=== PATIENT | female | born 1950 | race African-American/Black ===

== ENCOUNTER 2019-08-25 15:48 | Observation (INO) | payer MEDICARE, SELFPAY ==
[2019-08-25] VITALS (10 sets, daily range): BP systolic 109–128; BP diastolic 52–76; PULSE 54–77; RESP 16–18; TEMP 36.1–36.4; O2SAT 99–100; BMI 28.8
--- NOTE | ~2019-08-25 | XR_ITS ---
EXAMINATION: XR chest 1V portable DATE: 08/25/2019 16:22 INDICATION: Syncope with unwitnessed fall. Neurologic symptoms. Nausea and vomiting. TECHNIQUE: frontal view of the chest was obtained. COMPARISON: Chest radiograph dated 01/21/2004 FINDINGS: Region of consolidation with air bronchograms in the left lower lobe. Remainder of the lungs are carmen r. No pulmonary edema, pleural effusion or pneumothorax. The cardiomediastinal silhouette is normal. Mild degenerative skeletal changes in the thoracic spine and bilateral shoulders. IMPRESSION: 1. Consolidation in the left lower lobe concerning for aspiration or pneumonia with differential incl uding atelectasis. Recommend radiographic follow-up to resolution. Reviewed, dictated and finalized at location A. AIN HEMMER AUTOMATIC IMPRESSION: 1. Consolidation in the left lower lobe concerning for aspiration or pneumonia with differential including atelectasis. Recommend radiographic follow-up to re solution.
--- NOTE | ~2019-08-25 | CT_ITS ---
EXAMINATION: CT cervical spine wo con DATE: 08/25/2019 15:59 INDICATION: Unwitnessed fall and found on ground with possible head injury, with subsequent intermit tent loss of consciousness, nausea and vomiting. TECHNIQUE: Computed tomography (CT) of the cervical spine was performed without intravenous contrast. Automated exposure control and iterative reconstruction technique were employed. The dose-length pro duct was 342.11 mGy-cm. COMPARISON: None FINDINGS: 1 mm anterolisthesis C3-4 on C5 and 1 mm retrolisthesis C5 on C6. Vertebral body heights are normal. No fracture. Lucent hemangiomas with thickened trabecula extending through the attenuation marrow fat . Moderate disc height loss at C2-C3 and C5-C6 and mild disc height loss at C4-C5, C6-C7 and T1-T2. D isc bulges throughout the cervical spine resulting in mild disc height loss at multiple levels most p rominent at C5-C6 and C6-C7. Multilevel mild to moderate right-sided and moderate to severe left-side d facet osteoarthritis. Severe bilateral uncovertebral osteoarthritis at the 5 C6. Mild to moderate u ncovertebral osteoarthritis throughout the remainder of the cervical spine. Together this results in mild to moderate neural foraminal stenosis bilaterally at C5-C6 and on the right at T1-T2. Mild neura l foraminal stenosis throughout the remainder of the cervical and upper thoracic spine. Atherosclerot ic calcification is at the bilateral carotid bulbs. Cervical soft tissues are otherwise unremarkable. Visualized portions of the sphenoid sinuses, mastoid air cells, middle ear cavities, airway and apic es of the lungs are clear. IMPRESSION: 1. Moderate cervical spondylosis. No acute osseous abnormality. Reviewed, dictated and finalized at location A. ER DEVELOPMENT SPECIALIST
--- NOTE | ~2019-08-25 | CT_ITS ---
EXAMINATION: CT brain wo con DATE: 08/25/2019 15:59 INDICATION: Unwitnessed fall with TECHNIQUE: Computed tomography (CT) of the head was performed without intravenous contrast. Sagittal and coronal reconstructions were performed. The mA was adjusted according to patient size. Iterative reconstruction technique was employed. The dose-length product was 605.33 mGy-cm. COMPARISON: head CT dated 09/12/15 FINDINGS: No fracture. Small region of encephalomalacia in the right frontal lobe consistent with chronic infar ct. No acute intracranial hemorrhage, acute infarction or abnormal extra axial fluid collection. Symm etric prominence of the sulci consistent with mild age-appropriate diffuse cerebral volume loss. Vent ricles are normal and symmetric. No mass/mass effect. Mild mucoperiosteal thickening in the bilateral ethmoid and maxillary sinuses. The orbits and mastoid air cells are normal. Intracranial calcified c erebral atherosclerosis is noted. IMPRESSION: 1. No fracture or acute intracranial process. 2. Small old right frontal infarct. Reviewed, dictated and finalized at location A. SPRING CUTTER
--- NOTE | 2019-08-25 15:37 | ECG_ITS ---
Measurements Intervals [place] Rate: 54 P: 60 TN: 153 QRS: 0 QRSD: 89 T: 31 QT: 459 QTc: 438 Interpretive Statements SINUS BRADYCARDIA BORDERLINE T WAVE ABNORMALITY- INFERIOR LEADS BASELINE ARTIFACT- I, II BORDERLINE ECG Electronically Signed On 08-26-2019 11:24:20 HEADING MATCHER AND ASSEMBLER by Nahum Cobb D.O.
--- NOTE | 2019-08-25 15:59 | ED.NEUROSD ---
HPI - Neuro Symptoms/Deficit General Chief Complaint: Suspected CVA Stated Complaint: code cva Time Seen by Provider: 08/25/19 15:49 Source: family and EMS Mode of arrival: EMS Limitations: other (Pt is nonverbal) History of Present Illness HPI Narrative: The pt is a 69 y/o female who presents to the ED, via EMS, c/o neurological deficits secondary to a fall onset today. Per EMS, pt went upstairs to use the restroom when the pt's family heard a thump. They went upstairs to find the pt had fallen, striking her head on the wall hard enough to leave a hole. EMS then arrived and the pt was A&O x4 at that time. Pt then began to become verbally unresponsive and was listing to the right side, as well as noting that the pt did experience some vomiting. EMS states that the pt momentarily became A&O x4 again before she became unresponsive. Per pt's family, pt has also not been eating or drinking much. Pt now lives at home with her family. HPI is limited due to the pt being nonverbal. Location: other (Unresponsive, was listing to the right side) Context: found down (Had fallen) Associated symptoms: other (Unobtainable) Related Data Home Medications Medication Instructions Recorded Confirmed atorvastatin 20 mg tablet 20 mg PO DAILY 05/23/19 carvedilol 25 mg tablet 25 mg PO Q12H 05/23/19 donepezil 5 mg tablet 5 mg PO DAILY 05/23/19 esomeprazole magnesium 20 mg 20 mg PO DAILY 05/23/19 capsule,delayed release fluoxetine 20 mg capsule 20 mg PO DAILY 05/23/19 Allergies Allergy/AdvReac Type Severity Reaction Status Date / Time No Known Allergies Allergy Verified 04/25/15 05:49 Review of Systems Review of Systems: ROS unobtainable: other (Unobtainable due to the pt being nonverbal. ) [facility] Past Medical History Medical History (Updated 08/25/19 @ 18:33 by Dunia Dodd MD) Alzheimer's type dementia with late onset without behavioral disturbance Chronic depression Essential (primary) hypertension Gastro-esophageal reflux disease without esophagitis terminal press operator (current) use of insulin Mixed hyperlipidemia Renal insufficiency Type 2 diabetes mellitus without complication, with long-term current use of insulin Unspecified deficiency anemia Surgical History Surgical History (Updated 08/25/19 @ 16:03 by Yonas Hi) Surgical history unknown Social History Social History (Updated 08/25/19 @ 16:08 by Yonas Hi) Smoking status: Former smoker Alcohol intake: never Substance use: never Gender identity (if verbalized by the patient): Female Spiritual care concerns: No Agree to blood products: Yes Comments PCP: Dr. Camargo PMSFx is limited due to the pt being nonverbal. History obtained via old records. Exam Const: General: no acute distress Nutritional Appearance: obese Limitations: behavioral limitations (Pt currently nonverbal) Resp: Effort & Inspection: normal respiratory effort Auscultation: clear to auscultation bilaterally Cardio: Rate: regular rate Rhythm: regular rhythm GI: GI Palp: Yes Soft to palpation and No Tenderness to palpation present (GI) Auscultation: normal bowel sounds Back/Spine/Pelvis: Cervical Spine: collar present Skin: General skin exam: normal color Neuro: General: other (Patient is able to follow commands normally.) Speech: aphasia Motor exam (neuro): Other motor observations present (Pt can move bilateral feet and squeeze hands. ) Extrem: General: normal to inspection, full ROM and no clubbing, cyanosis or edema Course Course Emergency Course: Patient presents with altered mental status after fall and head injury. Unclear if patient eventually had subclinical seizure activity causing her to be postictal or if she simply has a concussion for which she is currently nonverbal. Patient does appear to have a history of dementia noted in her medical records from primary care physician office. Patient without acute findings noted on CT scan. Chest x-r
[2019-08-25 16:01] LABS: Glucose Point of Care 125 (65-105)
[2019-08-25 16:19] LABS: Basophils Percent Auto 0.7 % (0.2-1.2); Eosinophils Percent Auto 1.1 % (0-4.4); Hematocrit 34.8 % (37.0-47.0); Hemoglobin 10.9 g/dL (12.0-15.0); Lymphocytes Absolute Auto 1.03 K/mm3 (0.9-3.2); Lymphocytes Percent Auto 36.8 % (18.3-44.2); Mean Corpuscular HGB Conc 31.3 g/dl (32-36); Mean Corpuscular Volume 86.4 fl (80-100); Mean Platelet Volume 10.9 fl (7.4-10.4); Monocytes Absolute Auto 0.2 K/mm3 (0.1-0.6); Monocytes Percent Auto 7.9 % (2.6-8.5); Neutrophils Absolute Auto 1.5 K/mm3 (1.3-6.7); Neutrophils Percent Auto 53.5 % (45.5-73.1); Platelet Count Result 208 k/mm3 (150-375); Red Blood Count 4.03 M/mm3 (4.2-5.4); Red Cell Distribution Width 14.8 % (11.5-14.5); White Blood Count 2.8 K/mm3 (4.5-10.0)
[2019-08-25 16:29] LABS: Blood Urea Nitrogen 19 mg/dL (7-17); Calcium 9.1 mg/dL (8.4-10.2); Carbon Dioxide 19 mmol/L (22-30); Chloride 103 mmol/L (98-107); Estimated Glomerular Filt Rate 41; Glucose 131 mg/dL (65-105); Potassium 4.8 mmol/L (3.4-5.0); Sodium 137 mmol/L (137-145)
[2019-08-25 16:35] LABS: INR 1.3; Prothrombin Time 15.4 Seconds (11.1-14.7)
[2019-08-25 16:41] LABS: Troponin I < 0.012 ng/mL (0.000-0.034)
[2019-08-25 16:52] LABS: Add Urine Microscopic? YES; Appearance Urine Cloudy (Clear); Bacteria Urine Trace /hpf; Bilirubin Urine 1+ (Negative); Blood Urine 1+ (Negative); Color Urine Amber (Yellow); Glucose Urine UA Negative (Negative); Hyaline Casts Urine 30-49 /lpf; Ketones Urine 2+ mg/dL (Negative); Leukocyte Esterase Ur Trace LEU/UL (Negative); Mucus Urine Heavy /lpf; Nitrate Urine Negative (Negative); Protein Urine 2+ mg/dL (Negative); Squamous Epithelial Cell Urine Many /hpf (Few)
[2019-08-25 17:32] LABS: Lactic Acid Reflex 1.1 mmol/L (0.7-2.1)
--- NOTE | 2019-08-25 18:14 | ADMGEN ---
This patient, Barby Little, was admitted to Medical Room 246-. Patient/family oriented to hospital policies and general routines including ID bracelet, bed and alarms, visiting hours, pain management, procedures, bathroom and other care routines, personal items, smoking policy, room service/diet, and visiting hours. Valuables list has been completed. Information on how to activate the Rapid Response Team has been discussed. Patient/Family are encouraged to report perceived risks to care and to ask questions if they do not understand what they are told or what they should do.
[2019-08-25] MEDS: LACTATED RINGERS 1,000 ML 150 ML IV CONT (18:36)
--- NOTE | 2019-08-25 21:30 | PM.IMHP ---
H&P: HPI History of Present Illness Chief complaint: Fall. Narrative: Barby Little is a 69 year old female with dementia, hypertension, diabetes, anemia, and chronic kidney disease who presented to the emergency department earlier this afternoon via EMS from home for evaluation of intermittent confusion after a fall. Unfortunately, she does not have any memory about what transpired this morning, and as such a majority of this medical history is obtained via a review of her electronic medical records. Not long prior to arrival to the emergency department, the patient went upstairs to use the restroom when her family members heard a thump. Upon entering the bathroom, they note that the patient had fallen and struck her head on the wall. The fall was hard enough that it actually left a hole in the drywall. On EMS arrival she was alert and oriented x4, however in route to the hospital she became verbally unresponsive and seemed to be listing to the right. Shortly thereafter she complained of nausea and had an episode of emesis. At the time my evaluation she is awake and alert and has no complaints, except for being frustrated by not being able to remember what happened today. It is unclear if the patient had a syncopal episode or if she simply had a fall. She does mention on occasion she will get lightheaded with position changes and shortly after standing up to walk. She does not believe she has ever had a syncopal episode and she also denies ever having a seizure. Of note, chest x-ray shows a consolidation in the left lower lobe concerning for aspiration or pneumonia. Patient denies dysphagia and concerns for aspiration. Currently she denies headache, neck ache, auditory and visual changes, focal weakness, paresthesias, fever, chills, sweats, cold and flu symptoms, chest pain, pleuritic pain, shortness of breath, nausea, vomiting, diarrhea, and dysuria. Review of Systems Review of Systems: All systems reviewed & are unremarkable except as noted in HPI and below PMFSH Past Medical History Medical History (Updated 08/25/19 @ 23:06 by Kelli Singh PA-C) Alzheimer's type dementia with late onset without behavioral disturbance Chronic anemia Chronic kidney disease Congestive heart failure Depression with anxiety GERD (gastroesophageal reflux disease) Hiatal hernia Noted on EGD in [place] [address] Garcias. Esophageal polyp was also noted at that time. Hyperlipidemia Hypertension Mixed hyperlipidemia Obstructive sleep apnea Renal insufficiency Type 2 diabetes mellitus Surgical History Surgical History (Updated 08/25/19 @ 19:28 by Kelli Singh PA-C) Status post uvulopalatopharyngoplasty Family History Family History Mother Family history of diabetes mellitus in first degree relative Sibling Family history of diabetes mellitus in first degree relative Other Diabetes mellitus Family history of allergic disorder Hypertension Social History Social History (Updated 08/25/19 @ 22:46 by Kelli Singh PA-C) Social History: The patient has her own home in [place], but has been living with her son ?due to a recent illness.? She is and has 2 children. 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 Her son, Davi Tristan, is listed as her emergency contact. She is a former smoker. No alcohol or drug abuse. Spiritual care concerns: No Agree to blood products: Yes Meds Home Medications and Allergies Home Medications Medication Instructions Recorded Confirmed Type atorvastatin 20 mg tablet 20 mg PO DAILY 05/23/19 08/25/19 History carvedilol 25 mg tablet 25 mg PO Q12H 05/23/19 08/25/19 History donepezil 5 mg tablet 5 mg PO DAILY 05/23/19 08/25/19 History esomeprazole magnesium 20 mg 20 mg PO DAILY 05/23/19 08/25/19 History capsule,delayed release fluoxetine 20 mg capsule 20 mg PO DAILY 05/23/19 08/25/19
[2019-08-25] MEDS: ALBUTEROL SULFATE NEB 2.5 MG/0.5 ML INH 5 MG INHALATION (21:37)
[2019-08-25] MEDS: IPRATROPIUM BR 0.02% INH SOLN 0.5 MG/2.5 ML VIAL INHALATION (21:37)
[2019-08-25 22:50] LABS: Hemoglobin A1C 7.4 % (<5.7)
[2019-08-25 22:56] LABS: Blood Urea Nitrogen 20 mg/dL (7-17); Calcium 9.1 mg/dL (8.4-10.2); Carbon Dioxide 20 mmol/L (22-30); Chloride 99 mmol/L (98-107); Creatine Kinase 56 U/L (30-135); Estimated CRCL calculation 37 ml/min; Estimated Glomerular Filt Rate 49; Glucose 121 mg/dL (65-105); Potassium 4.4 mmol/L (3.4-5.0); Sodium 138 mmol/L (137-145)
[2019-08-25 22:57] LABS: Alanine Aminotransferase 10 U/L (4-35); Albumin Level 4.1 g/dL (3.5-5.1); Alkaline Phosphatase 54 U/L (38-126); Aspartate Amino Transferase 18 U/L (14-36); Bilirubin,Total 0.5 mg/dL (0.2-1.3)
[2019-08-25 23:45] LABS: Alveolar/Arterial O2 Gradient 20.5 mmHg; Base Excess ABG -6.1 mEq/l (+/-2.0); Carboxyhemoglobin 0.2 % THb (0-2.0); Fractional Inspired Oxygen 21 %; HCO3 ABG 19.2 mEq/l (22.0-26.0); Methemoglobin ABG 0.5 %THb (0-1.5); Oxygen Content ABG 14.4 %vol (16.0-22.0); Oxygen Saturation ABG 95.7 % (95.0-100.0); Oxyhemoglobin 94.4 % THb (90.0-100.0); PCO2 ABG 37.5 mmHg (35.0-45.0); PO2 ABG 84.3 mmHg (80.0-100.0); PO2 FiO2 Ratio Arterial Blood 4.01 %; Reduced Hemoglobin 4.9 %THb (0-5.0); Total Hemoglobin 10.8 g/dL (12.0-18.0); pH ABG 7.328 (7.350-7.450)
[2019-08-25 23:46] LABS: Glucose Point of Care 90 (65-105)
[2019-08-25 23:46] LABS: Modified Allen's Test Pass; Site Drawn RIGHT RADIAL
[2019-08-26] VITALS (22 sets, daily range): BP systolic 102–138; BP diastolic 49–98; PULSE 57–84; RESP 16–20; TEMP 36.3–37.2; O2SAT 97–100
[2019-08-26] LABS: Folic Acid 7.2 ng/mL (2.76->20)
[2019-08-26 00:19] LABS: Iron 56 ug/dL (37-170)
[2019-08-26 00:28] LABS: Percent Iron Saturation 18 % (20-50)
[2019-08-26] MEDS: ALBUTEROL SULFATE NEB 2.5 MG/0.5 ML INH 5 MG INHALATION ×4 (02:47→19:57)
[2019-08-26] MEDS: IPRATROPIUM BR 0.02% INH SOLN 0.5 MG/2.5 ML VIAL INHALATION ×4 (02:48→19:57)
[2019-08-26] MEDS: LACTATED RINGERS 1,000 ML 80 ML IV CONT ×2 (05:51→17:12)
[2019-08-26] MEDS: FLUOXETINE HCL 20 MG CAP PO (08:21)
[2019-08-26] MEDS: PANTOPRAZOLE SOD SESQUIHYDRATE 20 MG TAB PO (08:21)
[2019-08-26] MEDS: ATORVASTATIN 20 MG TABLET PO (08:21)
[2019-08-26] MEDS: carvediloL 25 MG TABLET PO ×2 (10:08→21:43)
[2019-08-26 10:35] LABS: Basophils Percent Auto 0.3 % (0.2-1.2); Eosinophils Absolute Auto 0.1 K/mm3 (0-0.3); Hematocrit 31.4 % (37.0-47.0); Lymphocytes Absolute Auto 0.83 K/mm3 (0.9-3.2); Lymphocytes Percent Auto 27.1 % (18.3-44.2); Mean Corpuscular HGB Conc 31.8 g/dl (32-36); Mean Corpuscular Volume 84.9 fl (80-100); Mean Platelet Volume 11.1 fl (7.4-10.4); Monocytes Absolute Auto 0.3 K/mm3 (0.1-0.6); Monocytes Percent Auto 8.5 % (2.6-8.5); Neutrophils Absolute Auto 1.9 K/mm3 (1.3-6.7); Neutrophils Percent Auto 62.1 % (45.5-73.1); Platelet Count Result 208 k/mm3 (150-375); Red Cell Distribution Width 14.7 % (11.5-14.5); White Blood Count 3.1 K/mm3 (4.5-10.0)
[2019-08-26 10:46] LABS: Blood Urea Nitrogen 15 mg/dL (7-17); Calcium 8.8 mg/dL (8.4-10.2); Carbon Dioxide 19 mmol/L (22-30); Chloride 103 mmol/L (98-107); Estimated CRCL calculation 43 ml/min; Estimated Glomerular Filt Rate 59; Glucose 142 mg/dL (65-105); Potassium 4.2 mmol/L (3.4-5.0); Sodium 137 mmol/L (137-145)
[2019-08-26 11:36] LABS: Glucose Point of Care 145 (65-105)
--- NOTE | 2019-08-26 13:19 | PM.IMPN ---
Progress Note: A&P Assessment and Plan (1) Fall from ground level: Code(s): W18.30XA - Fall on same level, unspecified, initial encounter Status: Acute Assessment and Plan: -----patient had an unwitnessed fall and significant dementia that is at baseline so she cannot tell us anything about this fall. It could be simply a mechanical fall but she does have orthostatic hypotension so we will continue fluids and start Milad hose. Telemetry reviewed with no significant abnormalities other than occasional PVCs. Magnesium and phosphorus will be checked. No signs of seizure or neurological symptoms. Will recheck orthostatic blood pressures tomorrow and hopefully will be able to go home tomorrow. (2) Closed head injury: Qualifiers: Encounter type: initial encounter Qualified Code(s): S09.90XA - Unspecified injury of head, initial encounter Code(s): S09.90XA - Unspecified injury of head, initial encounter Status: Acute Assessment and Plan: -----no acute abnormalities on imaging. Family states that the patient is at her baseline. Her neurological exam is normal. (3) Pneumonia: Qualifiers: Laterality: left Lung location: lower lobe of lung Pneumonia type: due to unspecified organism Qualified Code(s): J18.9 - Pneumonia, unspecified organism Code(s): J18.9 - Pneumonia, unspecified organism Status: Acute Assessment and Plan: -----patient had good lung sounds and passed her speech evaluation. She did have some vomiting EN route which may have caused some aspiration pneumonia. Will continue antibiotics (4) Chronic kidney disease: Code(s): N18.9 - Chronic kidney disease, unspecified Status: Acute Assessment and Plan: -----kidney function at baseline (5) Bradycardia: Code(s): R00.1 - Bradycardia, unspecified Status: Acute Assessment and Plan: -----some bradycardia with occasional PVCs. She did not dip below 60 on telemetry. I do not suspect this is the cause of her fall. (6) Type 2 diabetes mellitus: Code(s): E11.9 - Type 2 diabetes mellitus without complications Status: Acute Assessment and Plan: -----last blood glucose 142. Continue sliding scale insulin. Metformin held (7) Leukopenia: Code(s): D72.819 - Decreased white blood cell count, unspecified Status: Acute Assessment and Plan: -----unknown baseline. Last white blood cell count 3.1. Her platelets are normal and she has mildly decreased hemoglobin. Follow-up with primary care physician outpatient Time Spent With Patient Time with patient: 25 - 35 minutes Subjective Date/time seen: 08/26/19 13:19 Interval history: Pt is a 69 year old female here for fall. Patient was seen today and has significant dementia which is at baseline according to the son at bedside whom she lives with. She says she does not remember getting out of bed today although they had to remind her that she just got out of bed 15 minutes ago. She could not tell me if she was dizzy or lightheaded during that time as she does not remember. At the time my exam she denies nausea, vomiting, fevers, chills, constipation, diarrhea, chest pain, sob, or abdominal pain. She denies cough any further nausea or pain to her neck or head from her fall. Review of Systems Review of Systems: All systems reviewed & are unremarkable except as noted in HPI and below Exam Narrative: Exam Narrative: General: Well developed well nourished patient resting comfortably in bed in NAD HEENT: normocephalic Neck: supple Neuro: Alert and oriented to place, president, name, in the month but thought it was 1920. Cranial nerves 2-12 intact. Equal strength the upper lower extremities 5/5. Able to do rapid alternating movements and [id number]. CV:RRR. Telemetry shows occasional PVCs and 1 episode of bigeminy. Resp:CTA Abd: Soft, non diste
[2019-08-26 13:55] LABS: Glucose Point of Care 138 (65-105)
[2019-08-26 18:06] LABS: Glucose Point of Care 125 (65-105)
[2019-08-26 21:53] LABS: Glucose Point of Care 172 (65-105)
[2019-08-27] VITALS (10 sets, daily range): BP systolic 129–147; BP diastolic 56–75; PULSE 60–85; RESP 18–20; TEMP 36.4; O2SAT 100
[2019-08-27] MEDS: ALBUTEROL SULFATE NEB 2.5 MG/0.5 ML INH 5 MG INHALATION ×2 (02:47→08:22)
[2019-08-27] MEDS: IPRATROPIUM BR 0.02% INH SOLN 0.5 MG/2.5 ML VIAL INHALATION ×2 (02:47→08:22)
[2019-08-27 06:03] LABS: Hematocrit 30.2 % (37.0-47.0); Hemoglobin 9.8 g/dL (12.0-15.0); Mean Corpuscular HGB Conc 32.5 g/dl (32-36); Mean Corpuscular Hemoglobin 27.4 pg (26-34); Mean Corpuscular Volume 84.4 fl (80-100); Mean Platelet Volume 11.7 fl (7.4-10.4); Platelet Count Result 195 k/mm3 (150-375); Red Blood Count 3.58 M/mm3 (4.2-5.4); Red Cell Distribution Width 14.9 % (11.5-14.5); White Blood Count 2.7 K/mm3 (4.5-10.0)
[2019-08-27 06:27] LABS: Blood Urea Nitrogen 13 mg/dL (7-17); Calcium 8.9 mg/dL (8.4-10.2); Carbon Dioxide 24 mmol/L (22-30); Chloride 103 mmol/L (98-107); Estimated CRCL calculation 40 ml/min; Estimated Glomerular Filt Rate 54; Glucose 133 mg/dL (65-105); Magnesium 1.3 mg/dL (1.6-2.3); Potassium 3.8 mmol/L (3.4-5.0); Sodium 141 mmol/L (137-145)
[2019-08-27] MEDS: PANTOPRAZOLE SOD SESQUIHYDRATE 20 MG TAB PO (08:23)
[2019-08-27] MEDS: FLUOXETINE HCL 20 MG CAP PO (08:23)
[2019-08-27] MEDS: carvediloL 25 MG TABLET PO (08:23)
[2019-08-27] MEDS: ATORVASTATIN 20 MG TABLET PO (08:23)
[2019-08-27] MEDS: MAGNESIUM SULF 2 GM/WATER 50ML 2 GM/50 ML BAG IVPB (08:30)
[2019-08-27 09:32] LABS: Glucose Point of Care 136 (65-105)
[2019-08-27] MEDS: LACTATED RINGERS 1,000 ML 80 ML IV CONT (11:12)
--- NOTE | 2019-08-27 12:34 | PM.DS ---
DS: Diagnosis Admitting Diagnosis Admitting Diagnosis: Fall on same level, unspecified, initial encounter Discharge Diagnosis (1) Fall from ground level: Code(s): W18.30XA - Fall on same level, unspecified, initial encounter Status: Acute Assessment and Plan: -----patient had an unwitnessed fall and significant dementia that is at baseline so she cannot tell us anything about this fall. It could be simply a mechanical fall but she did have orthostatic hypotension which improved with IV hydration and NINA hose. Pt and family states she does not drink enough water or liquids at home and they are going to try and increase her oral intake. Telemetry reviewed with no significant abnormalities other than occasional PVCs. Mag low and replaced. phos okay. No signs of seizure or neurological symptoms. (2) Closed head injury: Qualifiers: Encounter type: initial encounter Qualified Code(s): S09.90XA - Unspecified injury of head, initial encounter Code(s): S09.90XA - Unspecified injury of head, initial encounter Status: Acute Assessment and Plan: -----no acute abnormalities on imaging. Family states that the patient is at her baseline. Her neurological exam is normal. (3) Pneumonia: Qualifiers: Laterality: left Lung location: lower lobe of lung Pneumonia type: due to unspecified organism Qualified Code(s): J18.9 - Pneumonia, unspecified organism Code(s): J18.9 - Pneumonia, unspecified organism Status: Acute Assessment and Plan: -----patient had good lung sounds and passed her speech evaluation. She did have some vomiting in route which may have caused some aspiration pneumonia. Will continue small course of antibiotics (4) Chronic kidney disease: Qualifiers: Chronic kidney disease stage: stage 1 Qualified Code(s): N18.1 - Chronic kidney disease, stage 1 Code(s): N18.9 - Chronic kidney disease, unspecified Status: Acute Assessment and Plan: -----kidney function at baseline (5) Bradycardia: Code(s): R00.1 - Bradycardia, unspecified Status: Acute Assessment and Plan: -----some bradycardia with occasional PVCs. She did not dip below 60 on telemetry. I do not suspect this is the cause of her fall. pt is low on mag which was perscribed. 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 Continue sliding scale insulin. Metformin held (7) Leukopenia: Code(s): D72.819 - Decreased white blood cell count, unspecified Status: Acute Assessment and Plan: -----unknown baseline. Last white blood cell count 2.7. Her platelets are normal and she has mildly decreased hemoglobin. Follow-up with primary care physician outpatient DS: Summary Hospital Course Reason for hospitalization: fall Hospital Course: Pt is a 69 year old female here for unwitnessed fall. Thought to be due to orthostatic hypotension as stated above. Pt had no reoccurring symptoms day of discharge. Family and pt were educated about worrisome signs and symptoms to come back to the ER for and was discharged in stable condition. see above for further detail. Status at Discharge Overall status at discharge: patient is back to baseline Time Spent with Patient Time attestation: Total time spent providing and/or coordinating discharge services:38 min Time sp
== END 2019-08-27 13:00 | disposition home health service (06) ==
LOC: ANHED 17:09 → ANH2MED 17:24
PROVIDERS: Physician Assistant; Admitting Provider Family Medicine; Emergency Provider Emergency Medicine; PCP Family Medicine; Visit Provider Physician Assistant
DX: J18.9 Pneumonia, unspecified organism (principal); S09.90XA Unspecified injury of head, initial encounter; W18.30XA Fall on same level, unspecified, initial encounter; Y93.E8 Activity, other personal hygiene; R00.1 Bradycardia, unspecified; I95.1 Orthostatic hypotension; D72.819 Decreased white blood cell count, unspecified; G30.1 Alzheimer's disease with late onset; F02.80 Dementia in other diseases classified elsewhere, unspecified severity, without behavioral disturbance, psychotic disturbance, mood disturbance, and anxiety; E11.22 Type 2 diabetes mellitus with diabetic chronic kidney disease; I13.0 Hypertensive heart and chronic kidney disease with heart failure and stage 1 through stage 4 chronic kidney disease, or unspecified chronic kidney disease; N18.1 Chronic kidney disease, stage 1; I50.9 Heart failure, unspecified; E78.2 Mixed hyperlipidemia; K21.9 Gastro-esophageal reflux disease without esophagitis; D64.9 Anemia, unspecified; F41.8 Other specified anxiety disorders; G47.33 Obstructive sleep apnea (adult) (pediatric); Z87.891 Personal history of nicotine dependence; Z79.84 Long term (current) use of oral hypoglycemic drugs; Z79.899 Other long term (current) drug therapy
CPT/HCPCS: 36415; 36600; 51701; 70450; 71045; 72125; 80048; 80076; 81001; 82375; 82550; 82607; 82728; 82746; 82805; 82948; 83036; 83050; 83540; 83550; 83605; 83735; 84100; 84443; 84484; 85025; 85027; 85610; 85730; 87040; 87804; 92610; 93005; 94640; 96361; 96365; 96366; 96367; 96375; 97161; 97165; 99285; A9270; G0378; J0456; J0696; J3475; J7120

== ENCOUNTER 2019-08-29 12:17 | Emergency (ER) | payer MEDICARE, SELFPAY ==
[2019-08-29 13:35] VITALS: BP 140/63; PULSE 66; RESP 16; TEMP 36.7; O2SAT 100
[2019-08-29 13:59] LABS: Basophils Percent Auto 0.7 % (0.2-1.2); Eosinophils Absolute Auto 0.1 K/mm3 (0-0.3); Eosinophils Percent Auto 2.8 % (0-4.4); Hematocrit 31.3 % (37.0-47.0); Lymphocytes Absolute Auto 0.94 K/mm3 (0.9-3.2); Lymphocytes Percent Auto 32.5 % (18.3-44.2); Mean Corpuscular HGB Conc 31.9 g/dl (32-36); Mean Corpuscular Hemoglobin 27.4 pg (26-34); Mean Corpuscular Volume 85.8 fl (80-100); Mean Platelet Volume 10.8 fl (7.4-10.4); Monocytes Absolute Auto 0.2 K/mm3 (0.1-0.6); Monocytes Percent Auto 7.3 % (2.6-8.5); Neutrophils Absolute Auto 1.6 K/mm3 (1.3-6.7); Neutrophils Percent Auto 56.7 % (45.5-73.1); Platelet Count Result 216 k/mm3 (150-375); Red Blood Count 3.65 M/mm3 (4.2-5.4); Red Cell Distribution Width 15.3 % (11.5-14.5); White Blood Count 2.9 K/mm3 (4.5-10.0)
[2019-08-29 14:10] LABS: INR 1.3; Partial Thromboplastin Time 30.9 SECONDS (22.3-36.8); Prothrombin Time 15.5 Seconds (11.1-14.7)
[2019-08-29 14:12] LABS: Alanine Aminotransferase 14 U/L (4-35); Albumin Level 4.1 g/dL (3.5-5.1); Alkaline Phosphatase 53 U/L (38-126); Aspartate Amino Transferase 24 U/L (14-36); Bilirubin,Total 0.6 mg/dL (0.2-1.3); Blood Urea Nitrogen 8 mg/dL (7-17); Calcium 9.2 mg/dL (8.4-10.2); Carbon Dioxide 25 mmol/L (22-30); Chloride 104 mmol/L (98-107); Estimated CRCL calculation 31 ml/min; Estimated Glomerular Filt Rate 45; Glucose 128 mg/dL (65-105); Potassium 4.3 mmol/L (3.4-5.0); Sodium 141 mmol/L (137-145)
[2019-08-29 16:30] VITALS: BP 127/71; PULSE 104; RESP 22; O2SAT 99
--- NOTE | 2019-08-29 16:56 | ED.GIBLEED ---
HPI - GI Bleed General Chief complaint: GI Bleed Stated complaint: BLACK STOOL X1D Time Seen by Provider: 08/29/19 16:55 Source: patient and family (Son) Mode of arrival: ambulatory Limitations: no limitations History of Present Illness HPI Narrative: The pt is a 69 y/o female who presents to the ED c/o melena onset one day ago. Pt's son states that the pt was discharged from this facility on 08/27/19 following a fall which occurred on 08/25/19. He states that the pt was at physical therapy today when she mentioned the stools, and was told to come to the ED. Pt did not receive any treatment prior to arrival. Pt reports dizziness, but denies ABD pain. Pt states that her PCP is Dr. Camargo. complaint: melena Onset (ago): day(s) (1) Associated symptoms: other (Dizziness) Treatments Prior to Arrival: none Related Data Home Medications Medication Instructions Recorded Confirmed atorvastatin 20 mg tablet 20 mg PO DAILY 05/23/19 08/28/19 carvedilol 25 mg tablet 25 mg PO Q12H 05/23/19 08/28/19 donepezil 5 mg tablet 5 mg PO DAILY 05/23/19 08/28/19 esomeprazole magnesium 20 mg 20 mg PO DAILY 05/23/19 08/28/19 capsule,delayed release fluoxetine 20 mg capsule 20 mg PO DAILY 05/23/19 08/28/19 Allergies Allergy/AdvReac Type Severity Reaction Status Date / Time No Known Allergies Allergy Verified 04/25/15 05:49 Review of Systems Review of Systems: All systems reviewed & are unremarkable except as noted in HPI and below Gastrointestinal: Gastrointestinal: Denies abdominal pain and Reports melena Neurologic: Reports dizziness PMFSH Past Medical History Medical History (Updated 08/29/19 @ 17:55 by Austin Houston MD) Alzheimer's type dementia with late onset without behavioral disturbance Chronic anemia Chronic anemia Chronic kidney disease Chronic leukopenia Congestive heart failure Depression with anxiety GERD (gastroesophageal reflux disease) Hiatal hernia Noted on EGD in October [address] Garcias. Esophageal polyp was also noted at that time. Hyperlipidemia Hypertension Hypomagnesemia Mixed hyperlipidemia Obstructive sleep apnea Renal insufficiency Type 2 diabetes mellitus Surgical History Surgical History (Updated 08/25/19 @ 19:28 by Kelli G. Gerling, PA-C) Status post uvulopalatopharyngoplasty Social History Social History (Updated 08/25/19 @ 22:46 by Kelli Singh PA-C) Social History: The patient has her own home in [place], but has been living with her son ?due to a recent illness.? She is and has 2 children. 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 Her son, Davi Tristan, is listed as her emergency contact. She is a former smoker. No alcohol or drug abuse. Spiritual care concerns: No Agree to blood products: Yes Comments PCP: Dr. Camargo Exam Const: General: no acute distress and alert Orientation/consciousness: patient oriented x3 HENMT: Head: normal to inspection Eyes: Pupils: Equal, round and reactive pupils present Neck: Neck: normal visual inspection and no lymphadenopathy Chest: Chest palpation & inspection: normal inspection of the chest Resp: Effort & Inspection: normal respiratory effort Auscultation: clear to auscultation bilaterally Cardio: Rate: regular rate GI: GI Palp: Yes Soft to palpation Auscultation: normal bowel sounds Rectal Exam: heme positive stool : General: Yes no CVA tenderness Back/Spine/Pelvis: Back: no CVA tenderness Skin: General skin exam: normal color Neuro: General: patient oriented x3 and moves all extremities Motor exam (neuro): 5/5 motor strength present throughout Other: heme neg Extrem: General: normal to inspection Course Course Emergency Course: Inform patient and the family about her lab work, she does have dark colored stool stool here in the ER is green in color . This time there is no significant GI bleed. However advised her to continue Nexium. Follow-up with the
[2019-08-29 17:16] VITALS: BP 148/76; BP 152/77; PULSE 63; PULSE 70
[2019-08-29 17:18] VITALS: BP 136/57; PULSE 67
[2019-08-29] MEDS: SODIUM CHLORIDE 0.9% IV 1,000 ML 150 ML IV CONT (17:29)
[2019-08-29] MEDS: PANTOPRAZOLE SODIUM IV 40 MG VIAL IV PUSH (17:29)
[2019-08-29 17:30] VITALS: BP 152/81; PULSE 78; RESP 17; O2SAT 100
[2019-08-29 19:18] VITALS: BP 142/75; PULSE 68; RESP 17; O2SAT 98
== END 2019-08-29 19:10 | disposition home or self-care (01) ==
PROVIDERS: Emergency Medicine; Emergency Provider Family Medicine; PCP Family Medicine
DX: D64.9 Anemia, unspecified (principal); I13.0 Hypertensive heart and chronic kidney disease with heart failure and stage 1 through stage 4 chronic kidney disease, or unspecified chronic kidney disease; N18.9 Chronic kidney disease, unspecified; I50.9 Heart failure, unspecified; E11.22 Type 2 diabetes mellitus with diabetic chronic kidney disease; G30.1 Alzheimer's disease with late onset; F02.80 Dementia in other diseases classified elsewhere, unspecified severity, without behavioral disturbance, psychotic disturbance, mood disturbance, and anxiety; K21.9 Gastro-esophageal reflux disease without esophagitis; E83.42 Hypomagnesemia; E78.2 Mixed hyperlipidemia; G47.33 Obstructive sleep apnea (adult) (pediatric); F41.8 Other specified anxiety disorders; Z87.891 Personal history of nicotine dependence
CPT/HCPCS: 36415; 80053; 85025; 85610; 85730; 86850; 86900; 86901; 96361; 96374; 99284; C9113; J7030

== ENCOUNTER 2019-11-11 07:27 | Inpatient (IN) | payer MEDICARE, SELFPAY ==
[2019-11-11] VITALS (38 sets, daily range): BP systolic 139–166; BP diastolic 67–109; PULSE 90–142; RESP 13–25; TEMP 35.7–36.9; O2SAT 98–100; BMI 25.0
--- NOTE | ~2019-11-11 | XR_ITS ---
EXAMINATION: XR chest 1V portable INDICATION: Cough TECHNIQUE: Portable AP chest at 0749 hours COMPARISON: 08/25/2019 FINDINGS: The lungs are free of acute opacities. A persistent masslike opacity is present in the left lung base. There is no pleural effusion or pneumothorax. The cardiomediastinal silhouette is normal. IMPRESSION: 1. Persistent masslike opacity of the left lung base. Follow-up with CT of the chest is recommended. Reviewed, dictated and finalized at location A.
--- NOTE | ~2019-11-11 | CT_ITS ---
EXAMINATION: CT abdomen pelvis wo con DATE: 11/11/2019 09:10 INDICATION: Abdominal pain TECHNIQUE: Computed tomography (CT) of the abdomen and pelvis was performed without intravenous contr ast. The dose-length product (DLP) was 642.16 mGy-cm. Automated exposure control and iterative recons truction technique were employed. COMPARISON: None FINDINGS: There are small pleural effusions, right greater than left. Minimal dependent atelectasis i s noted. There is a moderate-sized sliding hiatal hernia which accounts for the left lower lobe massl porter opacity described on the chest radiograph. There is focal fatty infiltration of the liver adjacen t to the ligamentum teres. The liver is otherwise unremarkable. The spleen, pancreas, gallbladder, an d adrenal glands are normal. The kidneys are unremarkable. There is calcified atherosclerosis of the aorta and many of the other arteries. No pathologically enlarged abdominal or pelvic lymph nodes are identified. There is no free intraperitoneal gas or evidence of bowel obstruction. A calcified uterin e fibroid is noted. There is mild lumbar spondylosis. IMPRESSION: 1. No CT correlate for the patient's symptoms. 2. Moderate size hiatal hernia accounting for the chest radiographic finding in question. Reviewed, dictated and finalized at location A.
[2019-11-11] MEDS: SODIUM CHLORIDE 0.9% IV 1,000 ML 999 ML IV CONT ×2 (07:39→09:26)
--- NOTE | 2019-11-11 07:42 | ECG_ITS ---
Measurements Intervals [place] Rate: 128 P: 64 OR: 135 QRS: -24 QRSD: 74 T: 96 QT: 366 QTc: 535 Interpretive Statements SINUS TACHYCARDIA NONSPECIFIC ST & T-WAVE ABNORMALITY- DIFFUSE LEADS BASELINE ARTIFACT- I, II, III, AVR, AVL, V1-V2 ABNORMAL ECG Electronically Signed On 11-11-2019 8:36:56 CDT by Nahum Cobb D.O.
--- NOTE | 2019-11-11 07:42 | ED.NAVMDI ---
HPI - Nausea/Vomiting/Diarrhea General Chief complaint: Nausea/Vomiting/Diarrhea Stated complaint: lethargic Time Seen by Provider: 11/11/19 07:31 Source: RN notes reviewed History of Present Illness HPI Narrative: Patient presents emergency department via EMS for nausea vomiting. Patient states she has been throwing up for the past 4 to 5 days. Patient states she has been throwing up black stuff . Patient currently denies any abdominal pain. States she is currently living with her son. She denies any fevers or chills chest pain shortness of breath or any other symptoms. When EMS initially arrived there was no the patient had pulse ox at 85% with low blood pressures that did improve with fluids and oxygen administration patient is currently on room air. Patient did have one small episode of emesis upon arrival to ED that was dark in color Related Data Home Medications Medication Instructions Recorded Confirmed atorvastatin 20 mg tablet 20 mg PO DAILY 05/23/19 08/28/19 carvedilol 25 mg tablet 25 mg PO Q12H 05/23/19 08/28/19 donepezil 5 mg tablet 5 mg PO DAILY 05/23/19 08/28/19 esomeprazole magnesium 20 mg 20 mg PO DAILY 05/23/19 08/28/19 capsule,delayed release fluoxetine 20 mg PO DAILY 11/11/19 Allergies Allergy/AdvReac Type Severity Reaction Status Date / Time No Known Allergies Allergy Verified 11/11/19 07:34 Review of Systems Review of Systems: Narrative: Gen.: Denies fevers or chills ENT: Denies congestion Respiratory: Denies shortness of breath or cough CV: Denies chest pain or palpitations GI: See HPI denies burning, urgency, frequency or hematuria Musculoskeletal: Denies back pain or muscle pain Neuro: Denies numbness, tingling, weakness or focal weakness Skin: Denies rash Except as documented, all other systems reviewed and negative PMF Past Medical History Medical History Alzheimer's type dementia with late onset without behavioral disturbance Chronic anemia Chronic anemia Chronic kidney disease Chronic leukopenia Congestive heart failure Depression with anxiety GERD (gastroesophageal reflux disease) Hiatal hernia Noted on EGD in October [address] Garcias. Esophageal polyp was also noted at that time. Hyperlipidemia Hypertension Hypomagnesemia Mixed hyperlipidemia Obstructive sleep apnea Renal insufficiency Type 2 diabetes mellitus Surgical History Surgical History (Updated 08/25/19 @ 19:28 by Kelli Singh PA-C) Status post uvulopalatopharyngoplasty Social History Social History Social History: The patient has her own home in [place], but has been living with her son ?due to a recent illness.? She is and has 2 children. 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 Her son, Davi Tristan, is listed as her emergency contact. She is a former smoker. No alcohol or drug abuse. Smoking status: Never smoker Alcohol intake: never Substance use: never Gender identity (if verbalized by the patient): Female Spiritual care concerns: Yes (Non-episcopalian mosque) Agree to blood products: Yes Exam Narrative: Exam Narrative: APPEARANCE: No acute distress, nontoxic, resting in bed EYES: EOMI HEENT: Normocephalic, atraumatic, OMM RESPIRATORY: No respiratory distress Clear to auscultation bilaterally with no rhonchi wheezing or rales. CARDIOVASCULAR: Regular rate and rhythm without murmurs rubs or gallops. ABDOMINAL: Soft, nontender, nondistended, no rebound or guarding Rectal: No hemorrhoids or fissures, small amount of soft brown stool that is Hemoccult negative MUSCULOSKELETAl: Moves all extremities. No clubbing, cyanosis or edema. NEURO: Awake and alert x 2 Following commands, speech normal, no focal deficits SKIN:: Warm, dry. No rashes lesions or abrasions PSYCHIATRIC: Normal affect/mood, Course Course Emergen
[2019-11-11 08:07] LABS: Basophils Percent Auto 0.1 % (0.2-1.2); Hematocrit 40.4 % (37.0-47.0); Hemoglobin 12.6 g/dL (12.0-15.0); Immature Granulocyte Absolute 0.02 K/mm3 (0.00-0.031); Immature Granulocyte Percent A 0.3 % (0-0.5); Lymphocytes Absolute Auto 0.74 K/mm3 (0.9-3.2); Lymphocytes Percent Auto 9.3 % (18.3-44.2); Mean Corpuscular HGB Conc 31.2 g/dl (32-36); Mean Corpuscular Hemoglobin 27.1 pg (26-34); Mean Corpuscular Volume 86.9 fl (80-100); Mean Platelet Volume 11.8 fl (7.4-10.4); Monocytes Absolute Auto 0.6 K/mm3 (0.1-0.6); Monocytes Percent Auto 7.8 % (2.6-8.5); Neutrophils Absolute Auto 6.6 K/mm3 (1.3-6.7); Neutrophils Percent Auto 82.5 % (45.5-73.1); Nucleated Red Blood Cells Perc 0.5 % (0.0-0.2); Platelet Count Result 297 k/mm3 (150-375); Red Blood Count 4.65 M/mm3 (4.2-5.4); Red Cell Distribution Width 16.4 % (11.5-14.5)
[2019-11-11 08:19] LABS: Add Urine Microscopic? YES; Appearance Urine Clear (Clear); Bilirubin Urine Negative (Negative); Blood Urine 2+ (Negative); Color Urine Yellow (Yellow); Glucose Urine UA 3+ mg/dL (Negative); Hyaline Casts Urine 20-29 /lpf; Ketones Urine 1+ mg/dL (Negative); Leukocyte Esterase Ur Negative LEU/UL (Negative); Mucus Urine Rare /lpf; Nitrate Urine Negative (Negative); Protein Urine 3+ mg/dL (Negative); RBC Urine 0-2 /hpf (0-2); Specific Grav Ur 1.021 (1.001-1.035); Squamous Epithelial Cell Urine Occasional /hpf (Few); WBC Urine 0-3 /hpf
[2019-11-11 08:23] LABS: Gastric Negative Control Negative; Gastric Positive Control Positive; Occult Blood Gastric Fluid Positive
[2019-11-11 08:24] LABS: INR 1.5; Prothrombin Time 17.5 Seconds (11.1-14.7)
[2019-11-11 08:25] LABS: Partial Thromboplastin Time 23.1 SECONDS (22.3-36.8)
[2019-11-11 08:29] LABS: Alanine Aminotransferase 26 U/L (4-35); Albumin Level 3.9 g/dL (3.5-5.1); Alkaline Phosphatase 52 U/L (38-126); Aspartate Amino Transferase 34 U/L (14-36); Bilirubin,Total 0.7 mg/dL (0.2-1.3); Blood Urea Nitrogen 48 mg/dL (7-17); Calcium 8.9 mg/dL (8.4-10.2); Carbon Dioxide 20 mmol/L (22-30); Chloride 96 mmol/L (98-107); Estimated CRCL calculation 18 ml/min; Estimated Glomerular Filt Rate 27; Glucose 506 mg/dL (65-105); Lactic Acid Reflex 4.9 mmol/L (0.7-2.1); Lipase 36 U/L (23-300); Potassium 3.5 mmol/L (3.4-5.0); Sodium 137 mmol/L (137-145)
[2019-11-11] MEDS: PANTOPRAZOLE SODIUM IV 40 MG VIAL IV PUSH ×2 (08:44→21:10)
[2019-11-11 08:48] LABS: Alveolar/Arterial O2 Gradient 16.7 mmHg; Fractional Inspired Oxygen 21 %; HCO3 ABG 21.8 mEq/l (22.0-26.0); Oxygen Content ABG 17.3 %vol (16.0-22.0); Oxygen Saturation ABG 96.5 % (95.0-100.0); Oxyhemoglobin 94.8 % THb (90.0-100.0); PCO2 ABG 37.9 mmHg (35.0-45.0); PO2 ABG 87.6 mmHg (80.0-100.0); PO2 FiO2 Ratio Arterial Blood 4.17 %; Total Hemoglobin 12.9 g/dL (12.0-18.0); pH ABG 7.377 (7.350-7.450)
[2019-11-11 08:49] LABS: Device ROOM AIR; Modified Allen's Test Pass; Site Drawn RIGHT RADIAL
[2019-11-11 09:05] LABS: Phosphorus 3.7 mg/dL (2.5-4.5)
[2019-11-11 09:10] LABS: Beta-Hydroxybutyrate/Acetoacetate 3.47 mmol/L (0.02-0.27)
[2019-11-11 10:31] LABS: Blood Urea Nitrogen 48 mg/dL (7-17); Calcium 8.6 mg/dL (8.4-10.2); Carbon Dioxide 22 mmol/L (22-30); Chloride 99 mmol/L (98-107); Estimated CRCL calculation 19 ml/min; Estimated Glomerular Filt Rate 30; Glucose 441 mg/dL (65-105); Potassium 3.1 mmol/L (3.4-5.0); Sodium 139 mmol/L (137-145)
[2019-11-11 11:05] LABS: Reflex Lactic Acid Yes or No Add Lactic
[2019-11-11 11:37] LABS: Lactic Acid 2.3 mmol/L (0.7-2.1)
--- NOTE | 2019-11-11 11:37 | PC.NURSE ---
Insulin not given yet, not stocked in pyxis.
[2019-11-11] MEDS: INSULIN HUMAN REGULAR (*BKC) 100 UNITS/ML 8 UNITS SUB-Q (11:49)
--- NOTE | 2019-11-11 11:55 | ADMGEN ---
This patient, Barby Little, was admitted to IMU Room 202-. Patient/family oriented to hospital policies and general routines including ID bracelet, bed and alarms, visiting hours, pain management, procedures, bathroom and other care routines, personal items, smoking policy, room service/diet, and visiting hours. Valuables list has been completed. Information on how to activate the Rapid Response Team has been discussed. Patient/Family are encouraged to report perceived risks to care and to ask questions if they do not understand what they are told or what they should do.
[2019-11-11 12:05] LABS: Glucose Point of Care 402 (65-105)
[2019-11-11] MEDS: SODIUM CHLORIDE 0.9% IV 1,000 ML 125 ML IV CONT (12:31)
--- NOTE | 2019-11-11 12:32 | WPDGICN ---
Assessment and Plan Assessment and plan (1) Coffee ground emesis: Code(s): K92.0 - Hematemesis Status: Acute Assessment and Plan: continue with supportive care, iv protonix bid and keep NPO for EGD first time in the morning monitor for signs of bleeding, serial h/h (2) Acute on chronic kidney failure: Qualifiers: Acute renal failure type: unspecified Chronic kidney disease stage: unspecified stage Qualified Code(s): N17.9 - Acute kidney failure, unspecified; N18.9 - Chronic kidney disease, unspecified Code(s): N17.9 - Acute kidney failure, unspecified; N18.9 - Chronic kidney disease, unspecified Status: Acute Assessment and Plan: here with jyoti, dehydration, ongoing n/v iv fluids, supportive care (3) Uncontrolled diabetes mellitus: Qualifiers: Diabetes mellitus type: type 2 Glycemic state: with hyperglycemia Qualified Code(s): E11.65 - Type 2 diabetes mellitus with hyperglycemia Code(s): E11.65 - Type 2 diabetes mellitus with hyperglycemia Status: Acute Assessment and Plan: uncontrolled DM, she claims that has not been using insulin. by medical team (4) Lactic acidosis: Code(s): E87.2 - Acidosis Status: Acute Assessment and Plan: improving with medical care, monitor (5) Chronic anemia: Code(s): D64.9 - Anemia, unspecified Status: Acute GI Consult Note Consult date/time: 11/11/19 12:32 Reason for consult: coffee ground emesis HPI: Barby Little is a 69 year old female with history of dementia, hypertension, diabetes (she claims that is not longer using insulin), anemia wiht baseline hb ~ 10, and chronic kidney disease (creatinine 1.2-1.5), most recent hospitalization 08/2019 with fall and confusion. She was brought here with almost a week of persistent nausea and vomiting, unable to hold much down also noted dark vomit , denies melena. She has JYOTI (creat 2.2), lactic 4.9-->2.3, hb 12, BUN 48, normal platelets. She was given insulin, fluids and admitted to floor. Rectal exam by ER provider was negative. She is not a good historian and does not remember having EGD. She also has history of reflux , home meds nexium, no blood thinners. Review of Systems Constitutional: Constitutional: Reports fatigue and Denies headache(s) Eyes: Eyes: Denies blurry vision ENT: Reports Normal hearing present, Denies headache(s) and Denies neck pain Cardiovascular: Cardiovascular: Denies chest pain and Denies dyspnea Respiratory: Respiratory: Denies wheezing Gastrointestinal: Gastrointestinal: Reports nausea and Reports vomiting Genitourinary: Genitourinary: Denies dysuria Musculoskeletal: Musculoskeletal: Denies neck pain Integumentary/Breasts: Skin/Breast: Denies dry skin Neurologic: Reports Normal hearing present, Denies Abnormal speech present and Denies weakness Psychiatric: Psychiatric: Denies anxiety Endocrine: Endocrine: Denies change in body appearance Hematologic/Lymphatic: Hematologic/Lymphatic: Denies easy bleeding Allergic/Immunologic: Allergic/Immunologic: Denies urticaria PMFSH Past Medical History Medical History Alzheimer's type dementia with late onset without behavioral disturbance Chronic anemia Chronic anemia Chronic kidney disease Chronic leukopenia Congestive heart failure Depression with anxiety GERD (gastroesophageal reflux disease) Hiatal hernia Noted on EGD in October [address] Garcias. Esophageal polyp was also noted at that time. Hyperlipidemia Hypertension Hypomagnesemia Mixed hyperlipidemia Obstructive sleep apnea Renal insufficiency Type 2 diabetes mellitus Surgical History Surgical History (Updated 08/25/19 @ 19:28 by Kelli Singh PA-C) Status post uvulopalatopharyngoplasty Social History Social History Social History: The patient has her own ho
[2019-11-11 13:30] LABS: Glucose Point of Care 395 (65-105)
--- NOTE | 2019-11-11 14:43 | PM.IMHP ---
H&P: HPI History of Present Illness Chief complaint: Hyperglycemia/GI bleed/renal insufficiency Narrative: Barby Little is a 69 year old female who tells me that she has been nauseated for more than a few days. She she does live with her son and she stated that her blood sugars have been in the 400s. He stated that her blood sugar been checked by her son. The patient has been vomiting for at least for 5 days. She has been vomiting block so she stated that every time she took a pill she would just get back up. Patient has not had any fever or chills. When EMS arrived the patient's pulse ox was 85%. Patient did have a small episode of emesis while in the ER and was dark in color. Also that she was wiped negative. GI has been consulted. According to GI now it they recommended continue supportive care IV Protonix b.i.d. keep NPO. EGD 1st time in the morning. Serial H&Hs. Initially was 4 point now is now 2.3. Blood sugar was initially 506 and is now 395. She was given 10 units of NovoLog in the emergency room. She was given IV fluids. She was started on IV Protonix. Last H&H was 12.6 and 40.4. Which is above her baseline. She could possibly be dehydrated as well. Abdominal CT was read as no CT correlation for patient's symptoms. Moderate size hiatal hernia accounting for the chest radiographic finding in question. Date of service 11/11/2019 Review of Systems Review of Systems: All systems reviewed & are unremarkable except as noted in HPI and below Constitutional: Constitutional: Reports as per HPI and Reports no additional constitutional complaints Eyes: Eyes: Reports as per HPI and Reports no additional eye complaints ENT: Reports system reviewed and no additional complaints, except as documented and Reports Normal hearing present Cardiovascular: Cardiovascular: Reports no additional cardiovascular complaints Respiratory: Respiratory: Reports no additional respiratory complaints and Reports no additional respiratory complaints Gastrointestinal: Gastrointestinal: Reports as per HPI and Reports no additional gastrointestinal complaints Musculoskeletal: Musculoskeletal: Reports no additional musculoskeletal complaints Integumentary/Breasts: Skin/Breast: Reports system reviewed and no additional complaints, except as docu and Reports as per HPI Neurologic: Reports system reviewed and no additional complaints, except as documented, Reports as per HPI and Reports Normal hearing present Psychiatric: Psychiatric: Reports no additional psychiatric complaints and Reports as per HPI Endocrine: Endocrine: Reports no additional endocrine complaints Hematologic/Lymphatic: Hematologic/Lymphatic: Reports no additional hematologic/lymphatic complaints Allergic/Immunologic: Allergic/Immunologic: Reports no additional allergic/immunologic complaints [facility] Past Medical History Medical History (Updated 11/11/19 @ 15:04 by Shaista Artis NP) Acute on chronic kidney failure Alzheimer's type dementia with late onset without behavioral disturbance Chronic anemia Chronic anemia Chronic kidney disease Chronic leukopenia Coffee ground emesis Congestive heart failure Depression with anxiety GERD (gastroesophageal reflux disease) Hiatal hernia Noted on EGD in October [address] Garcias. Esophageal polyp was also noted at that time. Hyperlipidemia Hypertension Hypomagnesemia Lactic acidosis Mixed hyperlipidemia Obstructive sleep apnea Renal insufficiency Type 2 diabetes mellitus Uncontrolled diabetes mellitus Surgical History Surgical History Status post uvulopalatopharyngoplasty Family History Family History (Updated 11/11/19 @ 14:54 by Shaista Artis NP) Mother Family history of diabetes mellitus in first degree relative Sibling Family history of diabetes mellitus in first degree relative Father Cancer Other Diabetes mellitus Family history of allergic disorder
[2019-11-11 15:45] LABS: Hematocrit 34.7 % (37.0-47.0); Hemoglobin 11.4 g/dL (12.0-15.0)
[2019-11-11] MEDS: INSULIN ASPART (*BKC) 100 UNITS/ML SUB-Q (16:12)
[2019-11-11 16:23] LABS: Glucose Point of Care 361 (65-105)
[2019-11-11 19:55] LABS: Glucose Point of Care 182 (65-105)
[2019-11-11 21:14] LABS: Hematocrit 33.9 % (37.0-47.0)
[2019-11-11 23:48] LABS: Glucose Point of Care 175 (65-105)
[2019-11-12] VITALS (18 sets, daily range): BP systolic 121–152; BP diastolic 64–105; PULSE 82–121; RESP 16–23; TEMP 35.8–36.7; O2SAT 96–100
[2019-11-12] MEDS: SODIUM CHLORIDE 0.9% IV 1,000 ML 125 ML IV CONT (03:26)
[2019-11-12 04:13] LABS: Glucose Point of Care 205 (65-105)
[2019-11-12] MEDS: INSULIN ASPART (*BKC) 100 UNITS/ML SUB-Q ×2 (04:31→17:14)
[2019-11-12 04:56] LABS: Basophils Percent Auto 0.2 % (0.2-1.2); Hematocrit 32.5 % (37.0-47.0); Hemoglobin 10.4 g/dL (12.0-15.0); Immature Granulocyte Absolute 0.02 K/mm3 (0.00-0.031); Immature Granulocyte Percent A 0.3 % (0-0.5); Lymphocytes Percent Auto 11.1 % (18.3-44.2); Mean Corpuscular Hemoglobin 27.3 pg (26-34); Mean Corpuscular Volume 85.3 fl (80-100); Mean Platelet Volume 11.5 fl (7.4-10.4); Monocytes Absolute Auto 0.6 K/mm3 (0.1-0.6); Monocytes Percent Auto 9.8 % (2.6-8.5); Neutrophils Percent Auto 78.6 % (45.5-73.1); Platelet Count Result 152 k/mm3 (150-375); Red Blood Count 3.81 M/mm3 (4.2-5.4); Red Cell Distribution Width 16.4 % (11.5-14.5); White Blood Count 6.3 K/mm3 (4.5-10.0)
[2019-11-12 05:07] LABS: Blood Urea Nitrogen 39 mg/dL (7-17); Calcium 8.1 mg/dL (8.4-10.2); Carbon Dioxide 22 mmol/L (22-30); Chloride 108 mmol/L (98-107); Estimated CRCL calculation 27 ml/min; Estimated Glomerular Filt Rate 41; Glucose 222 mg/dL (65-105); Potassium 3.4 mmol/L (3.4-5.0); Sodium 139 mmol/L (137-145)
[2019-11-12 05:54] LABS: Hemoglobin A1C 6.9 % (<5.7)
[2019-11-12] MEDS: SODIUM CHLORIDE 0.9% IV 500 ML 10 ML IV CONT (06:40)
--- NOTE | 2019-11-12 06:40 | PC.NURSE ---
To GI Lab per [id number], REPORT TO GI RN.
[2019-11-12 06:47] LABS: Glucose Point of Care 141 (65-105)
--- NOTE | 2019-11-12 07:02 | WPDANESEPPF ---
Anes - Initial Pre Proc Eval Procedure: Operation Date: 11/12/19 08:00 Proposed Procedures p Esophagogastroduodenoscopy - Minor Tadeo MD Date/Time: 11/12/19 07:02 Surgeon: Shanta Colorado MD Pre Op Diagnosis: Hyperglycemia/GI bleed/renal insufficiency Patient Data Age: 69 Gender: F Height: 5 ft 4 in Weight: 64.6 kg Last Vital Signs Temp 36.7 C 11/12/19 06:46 Pulse 113 H 11/12/19 06:46 Resp 18 11/12/19 06:46 BP 151/89 H 11/12/19 06:46 Pulse Ox 96 11/12/19 06:46 Allergies Allergy/AdvReac Type Severity Reaction Status Date / Time No Known Allergies Allergy Verified 11/11/19 12:42 Home Medications Medication Instructions Recorded Confirmed Type atorvastatin 20 mg tablet 20 mg PO DAILY 05/23/19 11/11/19 History carvedilol 25 mg tablet 25 mg PO Q12H 05/23/19 11/11/19 History donepezil 5 mg tablet 5 mg PO HS 05/23/19 11/11/19 History esomeprazole magnesium 20 mg 20 mg PO DAILY 05/23/19 11/11/19 History capsule,delayed release metformin 500 mg tablet 1,000 mg PO BID #360 tablet 06/05/19 11/11/19 Rx trazodone 50 mg tablet 50 mg PO . q.h.s. #30 tablet 11/07/19 11/11/19 Rx fluoxetine 20 mg PO DAILY 11/11/19 11/11/19 History Laboratory Tests 11/11/19 11/11/19 11/11/19 07:56 07:56 07:57 WBC 8.0 K/mm3 K/mm3 (4.5-10.0) RBC 4.65 M/mm3 M/mm3 (4.2-5.4) Hgb 12.6 g/dL g/dL (12.0-15.0) Hct 40.4 % % (37.0-47.0) MCV 86.9 fl fl (80-100) MCH 27.1 pg pg (26-34) MCHC 31.2 g/dl L g/dl (32-36) RDW 16.4 % H % (11.5-14.5) Plt Count 297 k/mm3 k/mm3 (150-375) MPV 11.8 fl H fl (7.4-10.4) Immature Gran % (Auto) 0.3 % % (0-0.5) Neut % (Auto) 82.5 % H % (45.5-73.1) Lymph % (Auto) 9.3 % L % (18.3-44.2) [place] % (Auto) 7.8 % % (2.6-8.5) Eos % (Auto) 0.0 % % (0-4.4) Baso % (Auto) 0.1 % L % (0.2-1.2) Lymph # (Auto) 0.74 K/mm3 L K/mm3 (0.9-3.2) [place] # (Auto) 0.6 K/mm3 K/mm3 (0.1-0.6) Eos # (Auto) 0.0 K/mm3 K/mm3 (0-0.3) Baso # (Auto) 0.0 K/mm3 K/mm3 (0.0-0.1) Abs Immat Gran (auto) 0.02 K/mm3 K/mm3 (0.00-0.031) Absolute Neuts (auto) 6.6 K/mm3 K/mm3 (1.3-6.7) Absolute Nucleated RBC 0.0 K/mm3 K/mm3 (0.0-0.012) Nucleated RBC % 0.5 % H % (0.0-0.2) PT INR APTT Puncture Site ABG pH ABG pCO2 ABG pO2 ABG PO2/FiO2 Ratio ABG HCO3 ABG O2 Saturation ABG O2 Content ABG Base Excess A-a Gradient Oxyhemoglobin Total Hemoglobin O2 Delivery Device O2 Liters/Min FiO2 Sodium Potassium Chloride Carbon Dioxide BUN Creatinine Estim Creat Clear Calc Estimated GFR Glucose POC Capillary Glucose Hemoglobin A1c Lactic Acid Calcium Phosphorus 3.7 mg/dL mg/dL (2.5-4.5) Magnesium 2.0 mg/dL mg/dL (1.6-2.3) Total Bilirubin AST ALT Alkaline Phosphatase Troponin I Total Protein Albumin Lipase Beta-Hydroxybutyrate/Acetoacetate 3.47 mmol/L H mmol/L (0.02-0.27) Urine Color Urine Appearance Urine pH Ur Specific [place] Urine Protein Urine Glucose (UA) Urine Ketones Ur Blood (Man) Urine Nitrate Urine Bilirubin Urine Urobilinogen Leukocyte Esterase Rfl Urine RBC Urine WBC Ur
--- NOTE | 2019-11-12 09:05 | PC.NURSE ---
Patient returned to floor from GI Lab/EGD Procedure at this time.
[2019-11-12] MEDS: PANTOPRAZOLE SODIUM IV 40 MG VIAL IV PUSH ×2 (09:09→20:23)
[2019-11-12 09:12] LABS: Glucose Point of Care 149 (65-105)
--- NOTE | 2019-11-12 09:32 | PM.IMPN ---
Progress Note: A&P Assessment and Plan (1) Coffee ground emesis: Code(s): K92.0 - Hematemesis Status: Acute Assessment and Plan: Patient presents with coffee-ground emesis over the last [address] Bird this AM showed esophagitis and gastritis, biopsies obtained. Protonix BID and carafate, antiemetics. H&H stable. Full liquids to start and advance diet as tolerated to a diabetic diet. Appreciate Dr Bird input. Plan for repeat EGD 3 mo. (2) Acute on chronic kidney failure: Qualifiers: Acute renal failure type: unspecified Chronic kidney disease stage: unspecified stage Qualified Code(s): N17.9 - Acute kidney failure, unspecified; N18.9 - Chronic kidney disease, unspecified Code(s): N17.9 - Acute kidney failure, unspecified; N18.9 - Chronic kidney disease, unspecified Status: Acute Assessment and Plan: Likely secondary to dehydration with recent GI symptoms. Improving, continue IV hydration today and advance diet as tolerated. (3) Type 2 diabetes mellitus: Qualifiers: Chronic kidney disease stage: stage 1 Diabetes mellitus complication detail: with chronic kidney disease Diabetes mellitus complication status: with kidney complications Diabetes mellitus [facility] insulin use: with [facility] use Qualified Code(s): E11.22 - Type 2 diabetes mellitus with diabetic chronic kidney disease; N18.1 - Chronic kidney disease, stage 1; Z79.4 - intermediate project manager (current) use of insulin Code(s): E11.9 - Type 2 diabetes mellitus without complications Status: Acute Assessment and Plan: Blood sugars 400s on arrival and patient thinks her blood sugars were in 400s this week. She lives with her son and he checks her blood sugars for her. A1c is 6.9 this AM average blood sugars 100s-150s so I suspect she is usually decently controlled and hyperglycemia this week likely secondary to vomiting. Will hold metformin for now due to dehydration and reassess once she is eating; continue accu-cheks and cover with SSI. (4) Lactic acidosis: Code(s): E87.2 - Acidosis Status: Acute Assessment and Plan: Suspect secondary to hyperglycemia and dehydration, improved. Anion gap elevated on arrival now down to 9 today. (5) Hypokalemia: Code(s): E87.6 - Hypokalemia Status: Acute Assessment and Plan: Suspect secondary to GI losses. K 3.4 this AM, replace orally. (6) Essential (primary) hypertension: Code(s): I10 - Essential (primary) hypertension Status: Acute Assessment and Plan: A bit elevated this AM, resume her home Carvedilol and monitor BP. (7) Mixed hyperlipidemia: Code(s): E78.2 - Mixed hyperlipidemia Status: Acute Assessment and Plan: Will resume home statin therapy once she is tolerating a diet. (8) Depression with anxiety: Code(s): F41.8 - Other specified anxiety disorders Status: Chronic Assessment and Plan: Stable. Resume home meds. (9) Alzheimer's type dementia with late onset without behavioral disturbance: Code(s): G30.1 - Alzheimer's disease with late onset; F02.80 - Dementia in other diseases classified elsewhere without behavioral disturbance Status: Chronic Assessment and Plan: Stable. Calm and cooperative this morning. Resume home donepezil. Subjective Date/time seen: 11/12/19 09:15 Interval history: Ms. Little is a 69yo F admitted for GI bleed and hyperglycemia. She is seen this morning after EGD and tells me she feels well. She denies abdominal pain and notes her nausea has improved, no vomiting so far this morning. She denies chest pain, shortness of breath, or cough. She tell
[2019-11-12] MEDS: POTASSIUM CHLORIDE 20 MEQ TABLET PO (11:08)
[2019-11-12] MEDS: carvediloL 25 MG TABLET PO ×2 (11:09→20:22)
[2019-11-12 12:02] LABS: Glucose Point of Care 181 (65-105)
[2019-11-12] MEDS: SUCRALFATE SUSP 100 MG/ML 10 ML UDC 1000 MG PO ×3 (12:48→20:23)
[2019-11-12 17:20] LABS: Glucose Point of Care 275 (65-105)
--- NOTE | 2019-11-12 18:55 | PC.NURSE ---
This patient, Barby Little, was transferred to [facility] on 11/12/19 at 1840. Personal belongings sent with patient. Report given to Nevin. Appropriate documentation sent with patient.
[2019-11-12] MEDS: SODIUM CHLORIDE 0.9% IV 1,000 ML 80 ML IV CONT (20:23)
[2019-11-12 20:29] LABS: Glucose Point of Care 208 (65-105)
[2019-11-13] VITALS: BP 144/74; PULSE 77; RESP 18; TEMP 36.1; O2SAT 99
[2019-11-13] MEDS: SODIUM CHLORIDE 0.9% IV 1,000 ML 80 ML IV CONT (03:01)
[2019-11-13 05:05] LABS: Basophils Percent Auto 0.3 % (0.2-1.2); Eosinophils Percent Auto 0.8 % (0-4.4); Hematocrit 28.2 % (37.0-47.0); Hemoglobin 8.9 g/dL (12.0-15.0); Immature Granulocyte Absolute 0.01 K/mm3 (0.00-0.031); Immature Granulocyte Percent A 0.3 % (0-0.5); Lymphocytes Percent Auto 24.3 % (18.3-44.2); Mean Corpuscular HGB Conc 31.6 g/dl (32-36); Mean Corpuscular Volume 85.5 fl (80-100); Mean Platelet Volume 10.8 fl (7.4-10.4); Monocytes Absolute Auto 0.2 K/mm3 (0.1-0.6); Monocytes Percent Auto 5.9 % (2.6-8.5); Neutrophils Absolute Auto 2.5 K/mm3 (1.3-6.7); Neutrophils Percent Auto 68.4 % (45.5-73.1); Platelet Count Result 147 k/mm3 (150-375); Red Cell Distribution Width 16.5 % (11.5-14.5); White Blood Count 3.7 K/mm3 (4.5-10.0)
[2019-11-13 05:22] LABS: Lactic Acid 0.8 mmol/L (0.7-2.1)
[2019-11-13 05:35] LABS: Alanine Aminotransferase 11 U/L (4-35); Albumin Level 2.6 g/dL (3.5-5.1); Alkaline Phosphatase 34 U/L (38-126); Aspartate Amino Transferase 17 U/L (14-36); Bilirubin,Total 0.5 mg/dL (0.2-1.3); Blood Urea Nitrogen 28 mg/dL (7-17); Calcium 7.5 mg/dL (8.4-10.2); Carbon Dioxide 25 mmol/L (22-30); Chloride 107 mmol/L (98-107); Estimated CRCL calculation 40 ml/min; Estimated Glomerular Filt Rate 49; Glucose 202 mg/dL (65-105); Magnesium 1.7 mg/dL (1.6-2.3); Phosphorus 1.8 mg/dL (2.5-4.5); Potassium 3.3 mmol/L (3.4-5.0); Sodium 137 mmol/L (137-145)
[2019-11-13 05:47] LABS: Beta-Hydroxybutyrate/Acetoacetate 1.06 mmol/L (0.02-0.27)
[2019-11-13] MEDS: SUCRALFATE SUSP 100 MG/ML 10 ML UDC 1000 MG PO ×2 (06:02→10:58)
[2019-11-13] MEDS: ONDANSETRON INJ 4 MG/2 ML VIAL IV PUSH (08:01)
[2019-11-13] MEDS: PANTOPRAZOLE SODIUM IV 40 MG VIAL IV PUSH (08:04)
--- NOTE | 2019-11-13 08:35 | WPDGIPROGNO ---
Progress Note: A&P Assessment and Plan (1) Erosive esophagitis: Code(s): K22.10 - Ulcer of esophagus without bleeding Status: Acute Assessment and Plan: severe esophagitis, biopsies pending continue with high dose ppi bid and also carafate will need another EGD in about 3 months to assess for healing (2) Nausea and vomiting in adult: Code(s): R11.2 - Nausea with vomiting, unspecified Status: Acute Assessment and Plan: due to severe esophagitis, continue with supportive care, ppi, antiemetics diet as tolerated (3) Hematemesis: Qualifiers: Nausea presence: unspecified Qualified Code(s): K92.0 - Hematemesis Code(s): K92.0 - Hematemesis Status: Acute (4) Uncontrolled diabetes mellitus: Qualifiers: Diabetes mellitus type: type 2 Glycemic state: with hyperglycemia Qualified Code(s): E11.65 - Type 2 diabetes mellitus with hyperglycemia Code(s): E11.65 - Type 2 diabetes mellitus with hyperglycemia Status: Acute Assessment and Plan: on treatment (5) Acute on chronic kidney failure: Qualifiers: Acute renal failure type: unspecified Chronic kidney disease stage: unspecified stage Qualified Code(s): N17.9 - Acute kidney failure, unspecified; N18.9 - Chronic kidney disease, unspecified Code(s): N17.9 - Acute kidney failure, unspecified; N18.9 - Chronic kidney disease, unspecified Status: Acute (6) Coffee ground emesis: Code(s): K92.0 - Hematemesis Status: Acute Subjective Date/time seen: 11/13/19 08:35 Interval history: today still with nausea and poor appetite Review of Systems Review of Systems: All systems reviewed & are unremarkable except as noted in HPI and below Exam Const: General: comfortable, no acute distress, alert and awake HENMT: General nose exam: Normal nares present Mouth: Yes dry mucous membranes Eyes: General: appearance normal, both eyes and all related structures Neck: Neck: no JVD Resp: Auscultation: clear to auscultation bilaterally Cardio: Rate: regular rate Rhythm: regular rhythm GI: Inspection: non-distended GI Palp: Yes Soft to palpation and No Guarding due to palpation present (GI) Auscultation: normal bowel sounds Skin: General skin exam: normal color Neuro: Speech: normal speech Extrem: General: normal to inspection Psych: Affect: normal affect Objective Data Vital Signs Vital Signs: Vital Signs - 24 hr 11/12/19 08:42 11/12/19 09:00 11/12/19 09:07 Temperature 97.1 F L Pulse Rate 101 H 114 H 97 Respiratory Rate 16 20 Blood Pressure 148/64 H 152/105 H Pulse Oximetry 100 100 11/12/19 09:12 11/12/19 10:00 11/12/19 11:09 Temperature 96.5 F L Pulse Rate 97 107 H 105 H Respiratory Rate 20 Blood Pressure 151/77 H Pulse Oximetry 100 11/12/19 12:00 11/12/19 16:00 11/12/19 18:48 Temperature 97.1 F L 97.4 F L 97.5 F L Pulse Rate 114 H 84 82 Respiratory Rate 20 18 16 Blood Pressure 152/105 H 152/99 H 139/69 Pulse Oximetry 100 99 99 11/12/19 20:22 11/13/19 00:00 Temperature 97 F L Pulse Rate 88 77 Respiratory Rate 18 Blood Pressure 144/74 H Pulse Oximetry 99 Intake/Output Intake/Output: Intake & Output 11/10/19 11/11/19 11/12/19 11/13/19 23:59 23:59 23:59 23:59 Intake Total 2510 2470 1120 Output Total 300 400 Balance 2510 2170 720 Meds/Results Medications: Active Medications Generic Name Dose Route Start Last Admin Trade Name Freq PRN Reason Stop Dose Admin Carvedilol 25 mg 11/12/19 09:15 11/12/19 20:22 Coreg PO 25 mg Q12HR ARMIDA Administration Dextrose 12.5 gm 11/11/19 15:05 Dextrose 50% Syringe IV PUSH PRN PRN Hypoglycemia Protocol Glucagon 1 mg 11/11/19 15:05 Glucagon For Inj IM PRN PRN Hypoglycemia Protocol Glucose 15 gm 11/11/19 15:05 Glutose 15 PO PRN PRN Hypoglycemia Protocol Hydralazine HCl
[2019-11-13 08:54] VITALS: PULSE 72
[2019-11-13] MEDS: carvediloL 25 MG TABLET PO (08:54)
[2019-11-13 08:55] VITALS: BP 156/77; PULSE 72; RESP 16; TEMP 36.4; O2SAT 100
[2019-11-13] MEDS: POTASSIUM CHLORIDE 20 MEQ TABLET 40 MEQ PO (10:40)
[2019-11-13 11:04] LABS: Glucose Point of Care 193 (65-105)
[2019-11-13 12:00] LABS: Glucose Point of Care 227 (65-105)
[2019-11-13] MEDS: INSULIN ASPART (*BKC) 100 UNITS/ML SUB-Q (12:12)
[2019-11-13 14:00] VITALS: BP 146/79; PULSE 73; RESP 18; TEMP 36.9; O2SAT 100
--- NOTE | 2019-11-13 15:52 | PM.DS ---
DS: Diagnosis Admitting Diagnosis Admitting Diagnosis: Hematemesis Discharge Diagnosis (1) Coffee ground emesis: Code(s): K92.0 - Hematemesis Status: Acute (2) Acute on chronic kidney failure: Qualifiers: Acute renal failure type: unspecified Chronic kidney disease stage: unspecified stage Qualified Code(s): N17.9 - Acute kidney failure, unspecified; N18.9 - Chronic kidney disease, unspecified Code(s): N17.9 - Acute kidney failure, unspecified; N18.9 - Chronic kidney disease, unspecified Status: Acute (3) Type 2 diabetes mellitus: Qualifiers: Diabetes mellitus continuous churn buttermaker insulin use: with continuous churn buttermaker use Diabetes mellitus complication status: with kidney complications Diabetes mellitus complication detail: with chronic kidney disease Chronic kidney disease stage: stage 1 Qualified Code(s): E11.22 - Type 2 diabetes mellitus with diabetic chronic kidney disease; N18.1 - Chronic kidney disease, stage 1; Z79.4 - intermodal dispatcher (current) use of insulin Code(s): E11.9 - Type 2 diabetes mellitus without complications Status: Acute (4) Lactic acidosis: Code(s): E87.2 - Acidosis Status: Acute (5) Hypokalemia: Code(s): E87.6 - Hypokalemia Status: Acute (6) Essential (primary) hypertension: Code(s): I10 - Essential (primary) hypertension Status: Acute (7) Mixed hyperlipidemia: Code(s): E78.2 - Mixed hyperlipidemia Status: Acute (8) Depression with anxiety: Code(s): F41.8 - Other specified anxiety disorders Status: Chronic (9) Alzheimer's type dementia with late onset without behavioral disturbance: Code(s): G30.1 - Alzheimer's disease with late onset; F02.80 - Dementia in other diseases classified elsewhere without behavioral disturbance Status: Chronic (10) Erosive esophagitis: Code(s): K22.10 - Ulcer of esophagus without bleeding Status: Acute (11) Gastritis: Code(s): K29.70 - Gastritis, unspecified, without bleeding Status: Acute DS: Summary Hospital Course Reason for hospitalization: Coffee-ground emesis Hospital Course: Patient is 69-year-old female who presented emergency room for nausea, vomiting and coffee-ground emesis. Vitals in the ER were temperature 97.1?, pulse 142, respiratory rate 18, blood pressure 158/84, pulse ox 100 on room air. CBC within normal limits. Sodium 139, potassium 3.1, chloride 99, carbon dioxide 22, BUN 48, creatinine 2.0, platelets 441. EKG showed sinus tachycardia [address] changes in lateral leads. No chest pain. Abdominal CT showed no CT correlation for the patient's symptoms with a moderate size hiatal hernia. Patient was admitted to the hospitalist service and observed. She continued to have nausea vomiting and underwent an EGD which showed erosive esophagitis and gastritis which is likely the cause of her coffee-ground emesis. Her hemoglobin remained stable of bleeding. IV hydration to 1.3 which appears to be about the patient's baseline. The patient has mild dementia and I spoke to her family about her discharge. Her A1c is 6.9 and at 69 with dementia this can be relaxed a little so her metformin was decreased. This may help her GI upset as well and will be better for her kidney function. The patient was discharged on the medications below and is to have a repeat EGD in 3 months. Plan discussed with family and the patient did well with therapy and she was able to go home with home health. They were educated about the worrisome signs and symptoms to come back to emergency room for. Patient was discharged in stable condition. Of note, her donepezil was discontinued and I spoke with the family about this. Her Qtc was 535. Time Spent with Patient Time attestation: Total time spent providing and/or coordinating discharge services: 40 min Time spent: Greater than 30 minutes Exam Narrative: Exam Narrative: General:
[2019-11-13 16:37] LABS: Glucose Point of Care 188 (65-105)
--- NOTE | 2019-11-13 16:46 | PC.NURSE ---
PO [facility] verified and given to patient at 1646. Unable to scan medication under [facility] at this time due to [facility] being down for pharmacist.
--- NOTE | 2019-11-13 17:01 | PC.NURSE ---
Call to patient's daughter in law Elva to review discharge instructions and medications. Daughter in law verbalized understanding. Questions and concerns answered at this time.
== END 2019-11-13 17:25 | disposition home health service (06) | DRG 381 ==
LOC: ANHED 11:45 → ANHIMU 12:39 → ANH2MED 11-13 03:31 → ANHIMU 11-15 09:30
PROVIDERS: Internal Medicine Gastroenterology; Nurse Practitioner; Physician Assistant; Admitting Provider Hospitalist; Emergency Provider Emergency Medicine; PCP Family Medicine; Visit Provider Hospitalist
PROC: 0DJ08ZZ Inspection of Upper Intestinal Tract, Via Natural or Artificial Opening Endoscopic (ICD-10-PCS; CPT 43235; principal; 2019-11-12 08:00)
DX: K22.11 Ulcer of esophagus with bleeding (principal); N17.9 Acute kidney failure, unspecified; E87.2 Acidosis; I12.9 Hypertensive chronic kidney disease with stage 1 through stage 4 chronic kidney disease, or unspecified chronic kidney disease; N18.9 Chronic kidney disease, unspecified; E86.0 Dehydration; E11.65 Type 2 diabetes mellitus with hyperglycemia; E87.6 Hypokalemia; K29.71 Gastritis, unspecified, with bleeding; I10 Essential (primary) hypertension; K21.0 Gastro-esophageal reflux disease with esophagitis; K22.8 Other specified diseases of esophagus; E78.2 Mixed hyperlipidemia; F41.8 Other specified anxiety disorders; G30.1 Alzheimer's disease with late onset; F02.80 Dementia in other diseases classified elsewhere, unspecified severity, without behavioral disturbance, psychotic disturbance, mood disturbance, and anxiety; D63.1 Anemia in chronic kidney disease; K21.9 Gastro-esophageal reflux disease without esophagitis; K44.9 Diaphragmatic hernia without obstruction or gangrene; G47.33 Obstructive sleep apnea (adult) (pediatric); E83.42 Hypomagnesemia; Z87.891 Personal history of nicotine dependence; K31.7 Polyp of stomach and duodenum; E11.22 Type 2 diabetes mellitus with diabetic chronic kidney disease; Z79.4 Long term (current) use of insulin
CPT/HCPCS: 36415; 36600; 51701; 71045; 74176; 80048; 80053; 81001; 82010; 82271; 82805; 83036; 83605; 83690; 83735; 83986; 84100; 84484; 85014; 85018; 85025; 85610; 85730; 86850; 86900; 86901; 87040; 88305; 93005; 96361; 96374; 99285; A9270; C9113; J1815; J2405; J2704; J3480; J7030; J7040